=== PATIENT | female | born 2000 | race Hispanic/Latino ===

== ENCOUNTER → 2024-01-07 08:52 | Outpatient (REF) | payer OTHER, SELFPAY ==
[2024-01-07 09:54] LABS: Hematocrit 37.1 % (37.0-47.0); Mean Corp Hgb Conc. 32.3 g/dL (33.0-37.0); Mean Corpuscular Hgb 25.8 pg (27.0-31.0); Mean Corpuscular Volume 79.8 fL (81.0-99.0); Mean Platelet Volume 10.7 fL (7.4-10.4); Platelet Count 263 10^3/uL (130-400); Red Blood Cell Count 4.65 10^6/uL (4.20-5.40); Red Cell Dist. Width 14.9 % (11.5-14.5); White Blood Cell Count 6.1 10^3/uL (4.8-10.8)
== END ==
LOC: REG 08:52
PROVIDERS: ATTENDING PHYSICIAN Nurse Practitioner Adult Health
DX: D50.0 Iron deficiency anemia secondary to blood loss (chronic) (principal)
CPT/HCPCS: 36415; 85027

== ENCOUNTER → 2025-01-10 10:21 | Outpatient (REF) | payer OTHER, SELFPAY ==
[2025-01-10 11:15] LABS: Hematocrit 39.8 % (37.0-47.0); Hemoglobin 12.7 g/dL (12.0-16.0); Mean Corp Hgb Conc. 31.9 g/dL (33.0-37.0); Mean Corpuscular Hgb 26.3 pg (27.0-31.0); Mean Corpuscular Volume 82.6 fL (81.0-99.0); Mean Platelet Volume 10.9 fL (7.4-10.4); Platelet Count 281 10^3/uL (130-400); Red Blood Cell Count 4.82 10^6/uL (4.20-5.40); Red Cell Dist. Width 14.6 % (11.5-14.5)
[2025-01-10 11:56] LABS: ALT (SGPT) 16 U/L (0-35); AST (SGOT) 25 U/L (14-36); Albumin 4.6 g/dl (3.5-5.0); Alkaline Phosphatase 57 U/L (38-126); Blood Urea Nitrogen 15 mg/dl (7-17); Calcium 9.3 mg/dl (8.4-10.2); Carbon Dioxide 27 mmol/L (22-30); Chloride 109 mmol/L (98-107); Glucose 79 mg/dl (70-99); Potassium 4.5 mmol/L (3.5-5.1); Sodium 141 mmol/L (135-145); Total Bilirubin 0.9 mg/dl (0.2-1.3); Total Protein 7.3 g/dl (6.3-8.2); eGFR > 60.00
[2025-01-10 12:10] LABS: Vitamin D, 25-OH*** 50.2 ng/mL (30-80)
[2025-01-10 12:43] LABS: Vitamin B12 762 pg/ml (239-931)
== END ==
LOC: CLINIC 10:21
PROVIDERS: ATTENDING PHYSICIAN Nurse Practitioner Adult Health
DX: D50.0 Iron deficiency anemia secondary to blood loss (chronic) (principal); G43.909 Migraine, unspecified, not intractable, without status migrainosus
CPT/HCPCS: 36415; 80053; 82306; 82607; 85027